=== PATIENT | female | born 1970 | race Caucasian/White ===

== ENCOUNTER 2020-05-06 01:26 | Emergency (ER) | payer OTHER ==
[~2020-05-06] VITALS: Ht 149.9 cm; Wt 72.6 kg
[~2020-05-06 01:26] MED LIST: ACET325 PO; ATOR80 PO; Aspir 8181 MG PO; Augmentin 875-1 EACH PO; CLOP75; CODGUAEL PO; EFFIENT10 MG PO; HYDSUL200 PO; LANS30EC; LISI5 PO; Lasix20 MG PO; METO25ER PO; METTREX2.5 PO; Mobic15 MG PO; Nitroglycerin0.4 MG SL; Norco 5-325 Ta1 EACH PO; Omeprazole20 M1
== END 2020-05-06 03:35 | disposition home or self-care (01) ==
LOC: ER 01:26
DX: R51.9 Headache, unspecified (principal); I25.2 Old myocardial infarction; F17.200 Nicotine dependence, unspecified, uncomplicated; Z79.82 Long term (current) use of aspirin; Z79.899 Other long term (current) drug therapy
CPT/HCPCS: 93005; 93010; 96372-59; 96374; 96375; 99284-25; A9270; J1100; J1885; J2405; J3030; J7030